=== PATIENT | male | born 1955 | race African-American/Black ===

== ENCOUNTER → 2017-07-10 | Outpatient (CLI) | payer BC ==
[~2017-07-10] MED LIST: BENICAR40 MG PO; CIALIS5 MG PO; COREG CR20 MG PO; EFFIENT10 MG PO; FLEXERIL PO; FLONASE16 GM INH; MAGOX 400400 MG PO; METROGEL55 GM TP; NAPROSYN500 MG PO; NITROGLYCERIN0.4 MG SUBLING; PLAVIX 75 MG TA75 M1 PO; POTASSIUM GLUCO99 M2 PO; SELENIMIN200 MCG PO; TURMERIC500 MG PO; VALIUM2 MG PO; VYTORIN 10-401 EACH PO; ZINC50 M1 PO; [UNRECOGNIZED DRUG - OTHER] PO
== END ==
LOC: RAD 08:39
DX: M54.2 Cervicalgia (principal)

== ENCOUNTER → 2017-11-10 | Outpatient (CLI) | payer BC | LOC: RAD 10:59 | DX: M16.0 Bilateral primary osteoarthritis of hip (principal) ==

== ENCOUNTER 2018-05-01 16:02 | Inpatient (IN) | payer BC ==
[~2018-05-01] VITALS: Ht 177.8 cm; Wt 154.2 kg
--- NOTE | ~2018-05-01 | HC ---
[facility] [place] [address] CONSULTATION Name: JIE CLARK Room #: 360-P [facility] IN ..#: [id number] Admission: 05/01/18 Attend Phys: Jass Wells MD Discharge: Date of : 59 Report #: [id number] THIS REPORT FOR: //name// CC: Jass Chau DATE OF SERVICE: 05/03/2018 INDICATION: Atrial fibrillation. HISTORY OF PRESENT ILLNESS: This is a 63-year-old gentleman with a history of CAD, paroxysmal AFib, obesity, hypertension, presenting with an episode of syncope. We are asked to evaluate the patient for AFib. His rhythm is sinus, but he is having short episodes of paroxysmal atrial fibrillation. He feels the palpitations. There is no history of chest pains, dyspnea, nausea or diarrhea. He has been having issues with his left neck and shoulder area, due to neuropathy. PAST MEDICAL HISTORY: CAD with DC with stent placement in 2007. Last cardiac catheterization in 07/2013 revealed patent RCA stents with to severe occlusions. History of hypertension, paroxysmal atrial fibrillation, morbid obesity, obstructive sleep apnea. ALLERGIES: ASPIRIN. MEDICATIONS: At home include Xarelto 20 mg daily, Neurontin, Protonix, Valium. SOCIAL HISTORY: Denies tobacco use. FAMILY HISTORY: Negative for premature CAD. REVIEW OF SYSTEMS: A full 10-point review of systems performed. Only the pertinent positives and negatives are described in the HPI. PHYSICAL EXAMINATION: VITAL SIGNS: Blood pressure is 150/80, heart rate is 61 beats per minute. GENERAL APPEARANCE: This is an obese male, in no acute distress. HEAD AND EYES: Normocephalic. Sclerae anicteric. ENT: Oral mucosa moist. NECK: Supple. LUNGS: Clear to auscultation. CARDIAC: Regular rate and rhythm; S1, S2 positive. ABDOMEN: Soft, nontender. EXTREMITIES: No cyanosis, 1-2+ lower extremity edema. LABORATORY VALUES: Creatinine is 1.2. Troponin is negative. Hemoglobin 13.4. [facility] [address] [place] [address] CONSULTATION Name: JIE CLARK Room #: 360-[facility] IN [facility].#: [id number] Admission: 05/01/18 Attend Phys: Jass Wells MD Discharge: Date of : 59 Report #: [id number] ASSESSMENT AND PLAN: 1. Paroxysmal atrial fibrillation, having very brief episodes. We will start a low dose beta nina at this time. He will continue with Xarelto. 2. Coronary artery disease with prior stent placement, stable with no symptoms of angina. 3. Syncope, may have not been a syncopal episode. As per Neuro. It may have been related to anxiolytics, sleep apnea, etc. 4. Hypertension, elevated blood pressure, would consider adding a diuretic in view of his lower extremity edema. 5. Sleep apnea, using a BiPAP machine. He has daytime somnolence, may need a reevaluation regarding the efficacy of his BiPAP machine. <ELECTRONICALLY SIGNED> By: Wisam Taamyo MD 05/04/18 0800 1143 1411 Wisam Tamayo MD /nt
--- NOTE | ~2018-05-01 | EKG ---
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: Marcia VALDIVIA : 1955 Requested By: Charlotte Atkinson Order Number: [id number] MD: Herson Warren Measurements Intervals [place] Rate: 62 P: 44 AR: 218 QRS: -9 QRSD: 88 T: 118 QT: 435 QTc: 442 Interpretive Statements Sinus rhythm Multiple premature complexes, supraven Borderline prolonged AR interval Abnormal R-wave progression, early transition Inferior infarct, old Compared to ECG 05/01/2018 18:44:51 No significant changes Electronically Signed On 05-06-2018 8:02:46 CDT by Herson Warren [email or web address] <ELECTRONICALLY SIGNED> By: Herson Warren MD, [facility] 05/06/18 0802 1319 1319 Herson Warren MD, [facility] /EPI
--- NOTE | ~2018-05-01 | EKG ---
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
--- NOTE | ~2018-05-01 | 2DMMODE ---
[facility] [address] [place] [address] 2 D/M-MODE ECHOCARDIOGRAM Name: JIE CLARK Room #: 360-P [facility] IN [facility]#: [id number] Admission: 05/01/18 Attend Phys: Jass Wells MD Discharge: Date of : 59 Date of Service: 05/04/18 1221 Report #: [id number] THIS REPORT FOR: //name// APPROVED REPORT Study performed: 05/04/2018 10:44:44 EXAM: Comprehensive 2D, Doppler, and color-flow Echocardiogram Patient Location: Bedside Room #: 360 Status: routine BSA: 2.62 HR: 57 bpm BP: 147/89 mmHg Other Information Study Quality: Technically Difficult/Technically Limited Technically limited study due to body habitus, inability to position patient, uncooperative patient. Indications Atrial Fibrillation Dizziness and Vertigo CAD Syncope Hypertension/HDD Echo Enhancing Agent Indication: Endocardial border delineation Agent(s) / Amount(s) Used: Optison 3 cc 2D Dimensions RVDd: 36.27 mm LVEF(%): 43.07 (>50%) IVSd: 13.22 (7-11mm) LVOT Diam: 24.86 (18-24mm) LVDd: 50.02 mm PWd: 11.80 (7-11mm) LVDs: 39.37 (25-40mm) Aortic Root: 35.83 mm IVC: 19.00 mm Broderick's LVEF: 43.07 % Volumes Left Atrial Volume (Systole) Single Plane 4CH: 66.84 mL Single Plane 2CH: 37.50 mL LA ESV Index: 24.00 mL/m2 [facility] [address] [address] 2 D/M-MODE ECHOCARDIOGRAM Name: JIE CLARK Arlene Room #: 360-[facility]#: [id number] Admission: 05/01/18 Attend Phys: Jass Wells MD Discharge: Date of : 59 Date of Service: 05/04/18 1221 Report #: [id number] Aortic Valve AoV Peak Chris.: 1.61 m/s AO Peak Gr.: 10.42 mmHg LVOT Max P.72 mmHg LVOT Max V: 1.30 m/s CAITLIN Vmax: 3.90 cm2 Mitral Valve E/A Ratio: 0.6 MV Decel. Time: 320.58 ms MV E Max Chris.: 0.63 m/s MV A Chris.: 1.01 m/s MV PHT: 92.97 ms IVRT: 114.19 ms Pulmonary Valve PV Peak Chris.: 1.06 m/s PV Peak Gr.: 4.47 mmHg Pulmonary Vein P Vein S: 0.44 m/s P Vein A: 0.29 m/s P Vein D: 0.31 m/s P Vein A Dur.: 107.3 msec P Vein S/D Ratio: 1.42 Tricuspid Valve RAP Estimate: 5.00 mmHg Left Ventricle The left ventricle is normal size. Regional wall motion is not well visualized but grossly normal. Mild concentric left ventricular hypertrophy. The left ventricular ejection fraction is within the normal range. LVEF is 50-55%. Mild diastolic dysfunction is present (impaired relaxation pattern). Right Ventricle Right ventricle is grossly normal in size. Right ventricular systolic function could not be assessed. Atria The left atrium size is normal. Right atrium is at the upper limits of normal. Aortic Valve The aortic valve is normal in structure. No aortic regurgitation is present. There is no aortic valvular stenosis. Mitral Valve The mitral valve is normal in structure. There is no mitral valve [address] [address] 2 D/M-MODE ECHOCARDIOGRAM Name: JIE CLARK Room #: 360-P [facility]#: [id number] Admission: 05/01/18 Attend Phys: Jass Wells MD Discharge: Date of : 59 Date of Service: 05/04/18 1221 Report #: [id number] regurgitation noted. No evidence of mitral valve stenosis. Tricuspid Valve Tricuspid valve is not well visualized. There is no tricuspid valve regurgitation noted. Unable to assess PA pressure. Pulmonic Valve Pulmonic valve is not well visualized. Great Vessels The aortic root is normal in size. IVC is normal in size and collapses >50% with inspiration. Pericardium There is no pericardial effusion. <Conclusion> The left ventricular ejection fraction is within the normal range. Regional wall motion is not well visualized but grossly normal. LVEF is 50-55%. Mild diastolic dysfunction The aortic valve is normal in structure. No aortic regurgitation or stenosis The mitral valve is normal in structure. No mitral valve regurgitation Pulmonary artery pressure could not be reliably ascertained There is no pericardial effusion. <ELECTRONICALLY SIGNED> By: Herson Warren MD, FACC 05/04/18 1221 1221 122 Herson Warren MD, FACC /INF
--- NOTE | ~2018-05-01 | EKG ---
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
--- NOTE | ~2018-05-01 | HC ---
[facility] [place] [address] [place] [address] CONSULTATION Name: EDUARDOJIE Arlene Room #: 360-P [facility]..#: [id number] Admission: 05/01/18 Attend Phys: Jass Wells MD Discharge: 05/06/18 Date of : 59 Report #: [id number] THIS REPORT FOR: //name// CC: Jass Chau REASON FOR CONSULTATION: AFib. HISTORY OF PRESENT ILLNESS: The patient is a 63-year-old with history of paroxysmal AFib as well as coronary artery disease, status post RCA stent, who recently has been having a lot of problems with back and hip pain. He was going to see his primary care physician and required some pain medications and some antianxiety medications. 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 He was at his doctor's office and had a possible syncopal episode while in the waiting room. He was admitted to the hospital and has not had any significant bradyarrhythmias. He has had some episodes of palpitations, which correlated with episodes of atrial fibrillation with rapid ventricular response. He has been experiencing some chest pain and chest pressure. He denies shortness of breath. He denies PND or orthopnea. REVIEW OF SYSTEMS: Negative other than what I mentioned above. PAST MEDICAL HISTORY: 1. Paroxysmal AFib. 2. CAD, status post stent. 3. Hypertension. 4. Obstructive sleep apnea. 5. Anxiety. 6. Depression. SOCIAL HISTORY: He does not smoke. FAMILY HISTORY: Noncontributory. ALLERGIES: Include ASPIRIN. CURRENT MEDICATIONS: Include hydralazine, Cymbalta, fentanyl, gabapentin, hydrochlorothiazide with triamterene, insulin, labetalol p.r.n., pantoprazole, Xarelto 20. PHYSICAL EXAMINATION: VITAL SIGNS: Temperature is 36.9, pulse 53-70, respiration 20, blood pressure 169/97, sats 95%. GENERAL: He is in no acute distress. HEENT: Oropharynx clear. NECK: Supple, no thyromegaly. [facility] [address] [place] [address] CONSULTATION Name: JIE CLARK Room #: 360-P [facility]#: [id number] Admission: 05/01/18 Attend Phys: Jass Wells MD Discharge: 05/06/18 Date of : 59 Report #: [id number] HEART: Regular rate and rhythm. LUNGS: Clear to auscultation bilaterally. ABDOMEN: Soft, nontender, nondistended with no hepatosplenomegaly. EXTREMITIES: No clubbing, cyanosis, edema. NEUROLOGIC: Cranial nerves 2-12 are intact. LABORATORY DATA: White count 4.5, hemoglobin 13, platelets 192. Coags: INR is 1.1. Chemistries: Sodium 144, potassium 3.5, BUN 13, creatinine 1.1, glucose 107, magnesium 2.1. ProBNP is 71. Troponin is negative x 3. His 12-lead EKG shows normal sinus rhythm with no ischemic changes and some inferior Q-waves. His echocardiogram shows EF of 50%-55%, mild LVH, normal left atrial size. ASSESSMENT: 1. Possible syncopal episode. 2. Paroxysmal atrial fibrillation. 3. Coronary artery disease. 4. Chest pain. PLAN: The patient is a 63-year-old with history of paroxysmal atrial fibrillation and chest pain. I have recommended for his chest pain that he undergo a nuclear stress test. With regards to his atrial fibrillation, I would like to start him on sotalol 80 b.i.d. and monitor for any EKG changes. We did discuss AFib ablation in the future to be performed as an outpatient. We will continue with Xarelto therapy. <ELECTRONICALLY SIGNED> By: Harjit Arriaza MD 05/07/18 1426 1721 0424 Harjit Arriaza MD /nt
[2018-05-01 17:07] VITALS: BP 155/92
[2018-05-01 17:16] LABS: ABSOLUTE NEUTROPHILS 2.8 thou/uL (1.4-8.2); BASOPHILS 0.7 % (0.0-2.0); EOSINOPHILS 3.6 % (0.0-3.0); HEMOGLOBIN 14.6 gm/dL (14.0-18.0); LYMPHOCYTES 28.4 % (24.0-44.0); MCH 29.9 pg (26.0-34.0); MCHC 33.9 g/dL (28.0-37.0); MONOCYTES 9.4 % (1.0-8.0); PLATELET COUNT 217 thou/uL (150-400); POLYS 57.9 % (36.0-66.0); RBC 4.88 mil/uL (4.50-6.00); RDW 13.5 % (10.5-14.5); WBC 4.9 thou/uL (4.0-11.0)
[2018-05-01 17:27] LABS: ANION GAP 5 mmol/L (7-16); BUN 14 mg/dL (7-18); CALCIUM 9.2 mg/dL (8.5-10.1); CHLORIDE 106 mmol/L (98-107); CO2 29 mmol/L (21-32); CREATININE 1.2 mg/dL (0.7-1.3); GLUCOSE 74 mg/dL (74-106); SODIUM 140 mmol/L (136-145)
[2018-05-01 17:36] LABS: ALBUMIN 3.5 g/dL (3.4-5.0); MAGNESIUM 2.2 mg/dL (1.8-2.4); POTASSIUM 4.4 mmol/L (3.5-5.1); SGOT 30 U/L (15-37); SGPT 28 U/L (30-65); TOTAL BILIRUBIN 0.5 mg/dL (<0.1-1.0); TOTAL PROTEIN 7.7 g/dL (6.4-8.2); TROPONIN-I < 0.04 ng/mL (<0.06)
[2018-05-01 17:58] LABS: APTT 31.8 Seconds (24.5-32.8); INR 1.1
[2018-05-01 18:40] LABS: URINE BILIRUBIN NEGATIVE (Negative); URINE BLOOD NEGATIVE (Negative); URINE CLARITY CLEAR; URINE COLOR YELLOW; URINE GLUCOSE-RANDOM* NEGATIVE (Negative); URINE KETONES NEGATIVE (Negative); URINE NITRITE-REFLEX NEGATIVE (Negative); URINE PROTEIN (DIPSTICK) NEGATIVE (Negative)
[2018-05-01 18:47] LABS: URINE LEUKOCYTES-REFLEX 1+ (Negative)
[2018-05-01] MEDS ORDERED: NEURONTIN300 MG PO (18:48)
[2018-05-01] MEDS ORDERED: GABAPENTIN 100100 MG PO (18:48)
[2018-05-01] MEDS ORDERED: XARELTO20 MG PO (18:48)
[2018-05-01 18:49] LABS: AMP/METHAMP Negative (Negative); BARBITURATES Negative (Negative); BENZODIAZEPINES POSITIVE (Negative); COCAINE Negative (Negative); METHADONE Negative (Negative); OPIATES POSITIVE (Negative); PCP Negative (Negative)
[2018-05-01] MEDS ORDERED: VALIUM5 MG PO (18:50)
[2018-05-01] MEDS ORDERED: CYMBALTA20 MG PO (18:50)
[2018-05-01 18:53] LABS: BACTERIA-REFLEX None Seen /HPF (None Seen); CASTS None Seen /LPF (None Seen); CRYSTALS None Seen /LPF (None Seen); SQUAMOUS 0-3 Few /LPF (0-3); URINE RBC None Seen /HPF (0-2); URINE WBC-REFLEX 6-15 Few /HPF (0-5)
[2018-05-01 19:38] VITALS: BP 151/106
[2018-05-01 20:20] VITALS: BP 144/80
[2018-05-01 21:00] VITALS: BP 160/113
[2018-05-02] VITALS (12 sets, daily range): BP systolic 137–157; BP diastolic 80–110
[2018-05-02 01:51] LABS: EOSINOPHILS 4.4 % (0.0-3.0); HEMATOCRIT 40.2 % (42.0-52.0); HEMOGLOBIN 13.4 gm/dL (14.0-18.0); LYMPHOCYTES 41.2 % (24.0-44.0); MCH 29.4 pg (26.0-34.0); MCHC 33.4 g/dL (28.0-37.0); MCV 88.2 fL (80.0-100.0); MONOCYTES 9.1 % (1.0-8.0); PLATELET COUNT 192 thou/uL (150-400); POLYS 44.3 % (36.0-66.0); RBC 4.56 mil/uL (4.50-6.00); RDW 13.9 % (10.5-14.5); WBC 4.5 thou/uL (4.0-11.0)
[2018-05-02 02:06] LABS: CHOLESTEROL 188 mg/dL (<200); HDL CHOLESTEROL 39 mg/dL (>40); LDL CHOLESTEROL 125 mg/dL (<100); SERUM ASSESSMENT Clear; TC:HDL 4.8 Ratio (Not establshd); TRIGLYCERIDE 123 mg/dL (<150); VLDL 25 mg/dL (<40)
[2018-05-02 02:40] LABS: CALCIUM 8.6 mg/dL (8.5-10.1); CREATININE 1.1 mg/dL (0.7-1.3); MAGNESIUM 2.1 mg/dL (1.8-2.4); POTASSIUM 3.5 mmol/L (3.5-5.1)
[2018-05-03] VITALS (12 sets, daily range): BP systolic 128–179; BP diastolic 80–113
[2018-05-04 04:30] VITALS: BP 147/89
[2018-05-04 08:00] VITALS: BP 147/89; BP 158/108
[2018-05-04 12:00] VITALS: BP 145/97; BP 169/97; BP 171/100
[2018-05-04 16:00] VITALS: BP 177/109
[2018-05-04 19:25] VITALS: BP 155/90
[2018-05-05 04:20] VITALS: BP 118/75
[2018-05-05 06:26] LABS: ABSOLUTE NEUTROPHILS 1.7 thou/uL (1.4-8.2); BASOPHILS 0.8 % (0.0-2.0); EOSINOPHILS 5.9 % (0.0-3.0); HEMATOCRIT 43.3 % (42.0-52.0); HEMOGLOBIN 14.6 gm/dL (14.0-18.0); LYMPHOCYTES 38.6 % (24.0-44.0); MCH 29.9 pg (26.0-34.0); MCHC 33.7 g/dL (28.0-37.0); MCV 88.7 fL (80.0-100.0); MONOCYTES 10.4 % (1.0-8.0); PLATELET COUNT 201 thou/uL (150-400); POLYS 44.3 % (36.0-66.0); RBC 4.89 mil/uL (4.50-6.00); RDW 13.5 % (10.5-14.5); WBC 3.8 thou/uL (4.0-11.0)
[2018-05-05 06:31] LABS: CALCIUM 9.3 mg/dL (8.5-10.1); CREATININE 1.1 mg/dL (0.7-1.3); POTASSIUM 3.3 mmol/L (3.5-5.1)
[2018-05-05 07:31] VITALS: BP 146/94
[2018-05-05 12:26] VITALS: BP 160/98
[2018-05-05 17:54] VITALS: BP 132/91
[2018-05-05 19:15] VITALS: BP 117/77
[2018-05-06 04:15] VITALS: BP 117/81
[2018-05-06 05:39] LABS: HEMATOCRIT 43.1 % (42.0-52.0); HEMOGLOBIN 14.5 gm/dL (14.0-18.0); MCH 29.6 pg (26.0-34.0); MCHC 33.6 g/dL (28.0-37.0); MCV 88.2 fL (80.0-100.0); PLATELET COUNT 216 thou/uL (150-400); RBC 4.89 mil/uL (4.50-6.00); RDW 13.8 % (10.5-14.5); WBC 3.8 thou/uL (4.0-11.0)
[2018-05-06 05:52] LABS: PROTIME 10.5 Seconds (9.3-11.4)
[2018-05-06 06:02] LABS: ALBUMIN 3.3 g/dL (3.4-5.0); CALCIUM 9.1 mg/dL (8.5-10.1); CREATININE 1.2 mg/dL (0.7-1.3); MAGNESIUM 2.3 mg/dL (1.8-2.4); POTASSIUM 3.6 mmol/L (3.5-5.1); TOTAL BILIRUBIN 0.7 mg/dL (<0.1-1.0); TOTAL PROTEIN 7.1 g/dL (6.4-8.2)
[2018-05-06 08:00] VITALS: BP 137/96
[2018-05-06 08:14] LABS: ABSOLUTE NEUTROPHILS 1.4 thou/uL (1.4-8.2); PLATELET ESTIMATE NORMAL
[2018-05-06 12:00] VITALS: BP 129/75
[2018-05-06 16:00] VITALS: BP 129/90
[2018-05-06] MEDS ORDERED: XARELTO20 MG PO (17:27)
[2018-05-06] MEDS ORDERED: PANTOPRAZOLE SO40 M1 PO (17:27)
[2018-05-06] MEDS ORDERED: ACETAMINOPHEN325 M1 PO (17:27)
[2018-05-06] MEDS ORDERED: SORINE 80 MG TA80 M1 PO (17:27)
[2018-05-06] MEDS ORDERED: MAXZIDE-25 MG1 EACH PO (17:27)
[2018-05-06 17:40] VITALS: BP 129/90
[2018-05-07 04:07] LABS: CK TOTAL 232 U/L (24-204)
[2018-05-08 15:07] LABS: CK MACRO TYPE I 0 % (Not Observed); CK MACRO TYPE II 0 % (Not Observed); CPK BB (%) 0 % (0); CPK MB (%) 0 % (0-3); CPK MM (%) 100 % (97-100)
== END 2018-05-06 19:11 | disposition home or self-care (01) | DRG 309 ==
LOC: ER 16:02 → EROBS 18:31 → 3W 18:31
PROVIDERS: Emergency Medicine; Hospitalist; Nurse Practitioner
PROC: 5A09457 Assistance with Respiratory Ventilation, 24-96 Consecutive Hours, Continuous Positive Airway Pressure (ICD-10-PCS; principal; 2018-05-02)
DX: I48.0 Paroxysmal atrial fibrillation (principal); Z68.42 Body mass index [BMI] 45.0-49.9, adult; M62.82 Rhabdomyolysis; Z79.01 Long term (current) use of anticoagulants; I16.0 Hypertensive urgency; F32.9 Major depressive disorder, single episode, unspecified; G47.33 Obstructive sleep apnea (adult) (pediatric); M19.90 Unspecified osteoarthritis, unspecified site; I10 Essential (primary) hypertension; I25.10 Atherosclerotic heart disease of native coronary artery without angina pectoris; E66.01 Morbid (severe) obesity due to excess calories; F41.9 Anxiety disorder, unspecified; Z88.8 Allergy status to other drugs, medicaments and biological substances; Z95.5 Presence of coronary angioplasty implant and graft; Z86.73 Personal history of transient ischemic attack (TIA), and cerebral infarction without residual deficits
CPT/HCPCS: 10879

== ENCOUNTER 2018-05-13 14:05 | Emergency (ER) | payer BC ==
[~2018-05-13] VITALS: Ht 177.8 cm; Wt 149.2 kg
--- NOTE | ~2018-05-13 | EKG ---
[place] [address] [facility] [place] [address] ELECTROCARDIOGRAM REPORT Name: JIE CLARK Room #: [facility]#: [id number] Admission: 05/13/18 Attend Phys: Discharge: Date of : 59 Report #: [id number] THIS REPORT FOR: //name// [facility] ED Test Date: 2018-05-13 Test Time: 14:12:12 Pat Name: JIE CLARK Department: Room: Gender: M Hourly Shift: CWEIANTOINE : 1955 Requested By: Nettie Linares Order Number: [id number] MD: Herson Warren Measurements Intervals [place] Rate: 62 P: 7 CO: 192 QRS: -23 QRSD: 95 T: 32 QT: 408 QTc: 415 Interpretive Statements Sinus rhythm Abnormal R-wave progression, early transition Inferior infarct, old Compared to ECG 05/05/2018 13:19:09 Atrial premature complexes are no longer present Electronically Signed On 05-13-2018 15:45:11 CDT by Herson Warren [email or web address] <ELECTRONICALLY SIGNED> By: Herson Warren MD, [facility] 05/13/18 1545 1412 141 Herson Warren MD, [facility] /EPI
[~2018-05-13 14:05] MED LIST changes: +ACETAMINOPHEN325 M1 PO; +CYMBALTA20 MG PO; +GABAPENTIN 100100 MG PO; +MAXZIDE-25 MG1 EACH PO; +NEURONTIN300 MG PO; +PANTOPRAZOLE SO40 M1 PO; +SORINE 80 MG TA80 M1 PO; +VALIUM5 MG PO; +XARELTO20 MG PO
[2018-05-13 15:34] LABS: ABSOLUTE NEUTROPHILS 1.6 thou/uL (1.4-8.2); BASOPHILS 0.9 % (0.0-2.0); EOSINOPHILS 5.9 % (0.0-3.0); HEMATOCRIT 41.4 % (42.0-52.0); HEMOGLOBIN 14.3 gm/dL (14.0-18.0); LYMPHOCYTES 38.5 % (24.0-44.0); MCHC 34.4 g/dL (28.0-37.0); MCV 87.1 fL (80.0-100.0); MONOCYTES 11.2 % (1.0-8.0); PLATELET COUNT 203 thou/uL (150-400); POLYS 43.5 % (36.0-66.0); RBC 4.76 mil/uL (4.50-6.00); RDW 13.1 % (10.5-14.5); WBC 3.7 thou/uL (4.0-11.0)
[2018-05-13 15:42] LABS: ANION GAP 5 mmol/L (7-16); BUN 14 mg/dL (7-18); CALCIUM 9.1 mg/dL (8.5-10.1); CHLORIDE 104 mmol/L (98-107); CO2 28 mmol/L (21-32); CREATININE 1.2 mg/dL (0.7-1.3); GLUCOSE 112 mg/dL (74-106); POTASSIUM 3.6 mmol/L (3.5-5.1); SODIUM 137 mmol/L (136-145)
[2018-05-13 15:51] LABS: TROPONIN-I < 0.04 ng/mL (<0.06)
== END 2018-05-13 18:54 | disposition home or self-care (01) ==
LOC: ER 14:05
PROVIDERS: Emergency Medicine
DX: R07.9 Chest pain, unspecified (principal); R42 Dizziness and giddiness; R11.0 Nausea; R06.02 Shortness of breath; R20.2 Paresthesia of skin; I10 Essential (primary) hypertension; I48.91 Unspecified atrial fibrillation; F41.9 Anxiety disorder, unspecified; F32.9 Major depressive disorder, single episode, unspecified; M19.90 Unspecified osteoarthritis, unspecified site; Z95.5 Presence of coronary angioplasty implant and graft; Z88.6 Allergy status to analgesic agent; Z88.8 Allergy status to other drugs, medicaments and biological substances

== ENCOUNTER → 2018-05-26 | Outpatient (CLI) | payer BC ==
--- NOTE | ~2018-05-26 | P ---
[facility] [place] [address] PROCEDURE REPORT Name: JIE CLARK [id number] Admission: 05/26/18 Attend Phys: Harjit Arriaza MD Discharge: Date of : 59 Report #: [id number] THIS REPORT FOR: //name// CC: Fer Chau PROCEDURE: Implantable loop recorder insertion. PREOPERATIVE DIAGNOSIS: Palpitations. POSTOPERATIVE DIAGNOSIS: Palpitations. HISTORY: The patient is a patient with a history of atrial fibrillation and palpitations, here for implantable loop recorder insertion. DESCRIPTION OF PROCEDURE: The patient underwent informed consent. The patient was prepped in a sterile fashion. I injected lidocaine at the incision site. An incision was made. The device was injected under the skin and a single layer of suture was performed. A dressing was placed. The patient awoke neurologically and hemodynamically intact, with no complications and no significant bleeding. The implanted device was a [employer] Confirm model #3500, serial #[id number]. The device was programmed to its nominal settings. By: 1255 1327 Harjit Arriaza MD /nt
[2018-05-26 09:41] VITALS: BP 120/81
== END | disposition home or self-care (01) ==
LOC: CATH 06:41
DX: I48.91 Unspecified atrial fibrillation (principal); R00.2 Palpitations; I10 Essential (primary) hypertension; G47.33 Obstructive sleep apnea (adult) (pediatric); E66.01 Morbid (severe) obesity due to excess calories; Z86.73 Personal history of transient ischemic attack (TIA), and cerebral infarction without residual deficits; Z88.8 Allergy status to other drugs, medicaments and biological substances; Z79.899 Other long term (current) drug therapy

== ENCOUNTER → 2018-09-04 | Outpatient (CLI) | payer BC ==
[2018-09-04 08:38] LABS: HEMATOCRIT 43.4 % (42.0-52.0); HEMOGLOBIN 14.8 gm/dL (14.0-18.0); MCH 30.2 pg (26.0-34.0); MCV 88.8 fL (80.0-100.0); RBC 4.88 mil/uL (4.50-6.00); RDW 13.3 % (10.5-14.5); WBC 4.5 thou/uL (4.0-11.0)
[2018-09-04 09:02] LABS: ALBUMIN 3.5 g/dL (3.4-5.0); CALCIUM 9.1 mg/dL (8.5-10.1); CREATININE 1.1 mg/dL (0.7-1.3); POTASSIUM 3.4 mmol/L (3.5-5.1); TOTAL BILIRUBIN 0.5 mg/dL (<0.1-1.0); TOTAL PROTEIN 7.9 g/dL (6.4-8.2)
== END ==
LOC: CAT 07:58
PROVIDERS: Internal Medicine Cardiovascular Disease
DX: I48.91 Unspecified atrial fibrillation (principal); I25.10 Atherosclerotic heart disease of native coronary artery without angina pectoris

== ENCOUNTER 2018-09-10 06:36 | Observation (INO) | payer BC ==
[~2018-09-10] VITALS: Ht 177.8 cm; Wt 153.0 kg
--- NOTE | ~2018-09-10 | P ---
[facility] [place] [address] PROCEDURE REPORT Name: JIE CLARK Room #: 219-P [facility] Omar Belcher#: [id number] Admission: 09/10/18 Attend Phys: Harjit Arriaza MD Discharge: 09/11/18 Date of : 59 Report #: [id number] THIS REPORT FOR: //name// CC: Christopher Chau DATE OF SERVICE: 09/10/2018 PREOPERATIVE DIAGNOSIS: Paroxysmal atrial fibrillation. POSTOPERATIVE DIAGNOSIS: Paroxysmal atrial fibrillation. HISTORY: The patient is a 63-year-old male with a history of coronary artery disease and paroxysmal atrial fibrillation, status post [employer] [place] implantable loop recorder insertion who has continued to have atrial fibrillation despite sotalol therapy. He is here for atrial fibrillation ablation. PROCEDURES PERFORMED: 1. AFib ablation, CPT code 19471. 2. 3D mapping EP, CPT code 78179. 3. Intracardiac echocardiography, CPT code 09485. ANESTHESIA: The patient underwent general anesthesia with no anesthesia related complications. DESCRIPTION OF PROCEDURE: The patient underwent informed consent. We discussed the details of the procedure including the risks, which include but not limited to bleeding, vascular damage, stroke or NC. He understood these risks and is willing to proceed. The patient was brought to the EP laboratory in fasting and unsedated state, prepped and draped in a sterile fashion and was placed under general anesthesia. I then obtained access to the right femoral vein x 3, placing an 8, 9 and 7-Estonian short sheath using the modified Seldinger technique. Next, under fluoroscopy I placed a decapolar catheter easily in the coronary sinus and an Ice catheter into the right atrium. Using CartoSound, I created a detailed 3D geometry of the right atrium and merged this with the cardiac CT scan. Next, the patient was systemically heparinized and a transseptal was performed using an SL1 sheath and a Jackson needle. This was straightforward without any issues. I then placed a Lasso catheter into the left atrium and created a 3D geometry of the left atrium and again merged this with the ultrasound and CT findings. At baseline, the patient was in sinus rhythm with a sinus cycle length of 780 milliseconds, MN interval 195 milliseconds, QRS duration 90 milliseconds, QT interval 400 milliseconds. Next, I exchanged the SL1 sheath for the cryo [address] [address] PROCEDURE REPORT Name: JIE CLARK Room #: 219-P [facility] Omar Belcher#: [id number] Admission: 09/10/18 Attend Phys: Harjit Arriaza MD Discharge: 09/11/18 Date of : 59 Report #: [id number]. The cryoballoon was placed into the left atrium. Next, I started by isolating the left superior pulmonary vein. I performed a 4-minute freeze in this vein and the vein isolated within 41 seconds. Therefore, I performed a single freeze of this vein. The left inferior pulmonary vein underwent a 4-minute freeze followed by a 3-minute freeze and after performing these two freezes there was evidence of isolation at the vein as well. I then turned my attention to the right superior pulmonary vein. This vein underwent a 3-minute freeze as this vein isolated within 50 seconds. I then turned my attention to the right inferior pulmonary vein and this underwent a 4-minute freeze followed by a 3-minute freeze and the vein was noted to be isolated. I then re-interrogated all veins and the left inferior pulmonary vein was reconnected. I performed a 4-minute freeze followed by a 3-minute freeze and the vein was isolated at this point. While performing the freezes on the right veins, I performed phrenic nerve pacing from the decapolar catheter placed at the subclavian vessel. All veins were re-interrogated. There was found to be entrance and exit block. As such, the procedure was concluded. The patient was in sinus rhythm with a sinus cycle length of 933 milliseconds, MN interval 190 milliseconds, QRS duration 92 milliseconds, QT interval 425 milliseconds. The patient then received systemic protamine and once the ACT was within acceptable range, all catheters and sheaths were pulled. I did perform a fbqtxa-[id number]-axhtd suture at the groin given his morbid obesity and higher risk for bleeding. CONCLUSIONS: Successful AFib ablation with isolation of the four pulmonary veins. By: 1258 2108 Harjit Arriaza MD /nt
--- NOTE | ~2018-09-10 | D ---
[facility] [place] [address] DISCHARGE SUMMARY Name: JIE CLARK Room #: 219-P [facility] Omar Belcher#: [id number] Admission: 09/10/18 Attend Phys: Harjit Arriaza MD Discharge: 09/11/18 Date of : 59 Report #: [id number] THIS REPORT FOR: //name// CC: Christopher Chau DATE OF SERVICE: 09/11/2018 DISCHARGE DIAGNOSES: 1. Paroxysmal atrial fibrillation. 2. Coronary artery disease. PROCEDURES PERFORMED: AFib ablation. HISTORY OF PRESENT ILLNESS: The patient is a 63-year-old with a history of recurrent atrial fibrillation despite antiarrhythmic drugs. He is here for an ablation. He underwent successful isolation of the 4 pulmonary veins without complication. HOSPITAL COURSE: He was monitored in the CCU overnight. On the day of discharge, he had some mild inspiratory chest pain. EKG demonstrated normal sinus rhythm with no ischemic changes. Otherwise, he was doing great. PHYSICAL EXAMINATION: HEART: On exam, his heart was regular rate and rhythm. LUNGS: Clear to auscultation bilaterally. ABDOMEN: Soft, nontender, nondistended. His right groin showed no significant bruising or hematoma. Telemetry, he maintained sinus rhythm throughout the night. As such, he was deemed stable for discharge home. He will continue with his Xarelto and sotalol therapy. He will continue his other home medications as well. Discharge instructions were reviewed and he will follow up with me in a period of 3 months. <ELECTRONICALLY SIGNED> By: Harjit Arriaza MD 09/14/18 1446 0826 1603 Harjit Arriaza MD /nt
--- NOTE | ~2018-09-10 | EKG ---
[address] [address] ELECTROCARDIOGRAM REPORT Name: JIE CLARK Room #: 219-[facility] M.R.#: [id number] Admission: 09/10/18 Attend Phys: Harjit Arriaza MD Discharge: Date of : 59 Report #: [id number] THIS REPORT FOR: //name// [facility] Test Date: 2018-09-10 Test Time: 15:44:22 Pat Name: JIE CLARK Department: Room: 219 Gender: M Insurance Follow Up Rep: Marcia VALDIVIA : 1955 Requested By: Harjit Arriaza Order Number: [id number] MD: Herson Warren Measurements Intervals [place] Rate: 74 P: 40 IN: 204 QRS: -16 QRSD: 99 T: 59 QT: 398 QTc: 442 Interpretive Statements Sinus rhythm Abnormal R-wave progression, early transition Inferior infarct, old Compared to ECG 05/13/2018 14:12:12 No significant changes Electronically Signed On 09-11-2018 8:28:20 CDT by Herson Warren [email or web address] <ELECTRONICALLY SIGNED> By: Herson Warren MD, [facility] 09/11/18 0828 1544 1544 Herson Warren MD, [facility] /EPI
[2018-09-10 07:04] VITALS: BP 139/88
[2018-09-10 07:07] LABS: EOSINOPHILS 5.9 % (0.0-3.0); HEMATOCRIT 41.6 % (42.0-52.0); HEMOGLOBIN 14.2 gm/dL (14.0-18.0); LYMPHOCYTES 33.5 % (24.0-44.0); MCH 30.3 pg (26.0-34.0); MCHC 34.1 g/dL (28.0-37.0); MCV 88.9 fL (80.0-100.0); MONOCYTES 11.2 % (1.0-8.0); PLATELET COUNT 204 thou/uL (150-400); POLYS 48.4 % (36.0-66.0); RBC 4.68 mil/uL (4.50-6.00); RDW 13.4 % (10.5-14.5)
[2018-09-10 07:16] LABS: CALCIUM 9.2 mg/dL (8.5-10.1); CREATININE 1.3 mg/dL (0.7-1.3); POTASSIUM 3.1 mmol/L (3.5-5.1)
[2018-09-10] MEDS ORDERED: NORCO 5-325 TA1 EACH PO (07:18)
[2018-09-10] MEDS ORDERED: EDARBYCLOR 40-1 EAC1 PO (07:19)
[2018-09-10 07:22] LABS: ALBUMIN 3.5 g/dL (3.4-5.0); TOTAL BILIRUBIN 0.4 mg/dL (<0.1-1.0); TOTAL PROTEIN 7.8 g/dL (6.4-8.2)
[2018-09-10 07:25] LABS: APTT 27.5 Seconds (24.5-32.8); PROTIME 10.2 Seconds (9.3-11.4)
[2018-09-10 13:15] VITALS: BP 153/69
[2018-09-10 17:30] VITALS: BP 149/72
[2018-09-10 19:41] VITALS: BP 146/82
[2018-09-11 00:24] VITALS: BP 130/64
[2018-09-11 04:35] VITALS: BP 118/64
[2018-09-11 07:31] VITALS: BP 144/67
[2018-09-11] MEDS ORDERED: SORINE 80 MG TA80 M1 PO (08:15)
[2018-09-11 09:47] VITALS: BP 144/67
== END 2018-09-11 12:20 | disposition home or self-care (01) ==
LOC: CATH 06:36 → 2N 15:37 → ENTRNSPT 09-11 12:16 → EDTRNSPTSTS 09-11 12:19 → 2N 09-11 12:20
PROVIDERS: Internal Medicine Cardiovascular Disease
DX: I48.0 Paroxysmal atrial fibrillation (principal); I25.10 Atherosclerotic heart disease of native coronary artery without angina pectoris; E78.00 Pure hypercholesterolemia, unspecified; I10 Essential (primary) hypertension; M19.90 Unspecified osteoarthritis, unspecified site; H53.2 Diplopia; G47.30 Sleep apnea, unspecified; E66.01 Morbid (severe) obesity due to excess calories; Z68.42 Body mass index [BMI] 45.0-49.9, adult; Z95.5 Presence of coronary angioplasty implant and graft; Z98.890 Other specified postprocedural states; Z87.891 Personal history of nicotine dependence; Z72.89 Other problems related to lifestyle; Z79.899 Other long term (current) drug therapy; Z86.73 Personal history of transient ischemic attack (TIA), and cerebral infarction without residual deficits; Z88.6 Allergy status to analgesic agent
CPT/HCPCS: 62110; 62900; 70005

== ENCOUNTER → 2018-10-04 | Outpatient (CLI) | payer BC ==
[~2018-10-04] MED LIST changes: +EDARBYCLOR 40-1 EAC1 PO; +NORCO 5-325 TA1 EACH PO
--- NOTE | ~2018-10-04 | SLE ---
[facility] [address] [address] POLYSOMNOGRAPHY STUDY Name: JIE CLARK Room #: REG [employer]#: [id number] Admission: 10/04/18 Attend Phys: Enrique Zayas MD Discharge: Date of : 59 Report #: [id number] THIS REPORT FOR: //name// CC: Enrique Chau DATE OF SERVICE: 10/04/2018 ATTENDING PHYSICIAN: Dr. Ector Rabago. The patient is 63 years old who weighs 328 pounds with a BMI of 47.1. The patient's Campbell score is 18/24 suggesting severe subjective hypersomnia. The patient has a history of sleep apnea for which he is on BiPAP at 20/14. However, he continues to have a persistent severe hypersomnia. His recent download information shows that BiPAP is effective in treating the patient's sleep apnea and his AHI was only 2.1 per hour from data downloaded between 09/17/2018-09/30/2018. Study with BiPAP followed by MSLT was performed to determine the etiology of his persistent hypersomnia. The patient is also on Cymbalta, gabapentin, and hydrocodone on a chronic basis and these medications were stopped 2 weeks prior to the testing. During the night of study, the patient spent 468 minutes in bed and slept for 395 minutes with a sleep efficiency of 84%. Sleep latency was 14.2 minutes with a REM latency of 83.2 minutes. Overall, sleep architecture showed increased stage 1 sleep, slightly reduced stage 2 sleep which was 35% of total sleep time. Absent N3 sleep and increased REM sleep, which was 34% of the total sleep time. EKG monitoring revealed average heart rate of 63 beats per minute. PVCs were occasionally seen. PLMS were seen at an index of 6.5 per hour and only 1.7 per hour caused EEG arousals. The patient was started on BiPAP at his home pressure of 20/14 and continued on the same pressure. The patient's AHI was only 1.2 per hour from 395 minutes of sleep at this pressure. Oxygen saturation remained above 93%. The patient had supine as well as REM sleep. This home BiPAP pressure was effective in treating the patient's sleep apnea. IMPRESSION: 1. Sleep apnea diagnosed by previous sleep study. 2. No clinically significant PLMS. RECOMMENDATIONS: 1. BiPAP at the prescribed home pressure of 20/14 was effective in treating the [facility] [address] [address] POLYSOMNOGRAPHY STUDY Name: JIE CLARK [id number] Admission: 10/04/18 Attend Phys: Enrique Zayas MD Discharge: Date of : 59 Report #: [id number] patient's sleep apnea. The patient's AHI was only 1.2 per hour at this pressure. 2. To evaluate patients persistent hypersomnia, MSLT was performed the next day, which is reported separately. 3. 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 4. Cautioned regarding driving until the patient's hypersomnia is resolved. <ELECTRONICALLY SIGNED> By: Enrique Zayas MD 10/05/18 2249 1810 1833 Enrique Zayas MD /nt
--- NOTE | ~2018-10-04 | SLE ---
[facility] [place] [address] POLYSOMNOGRAPHY STUDY Name: JIE CLARK Room #: REG [facility]#: [id number] Admission: 10/04/18 Attend Phys: Enrique Zayas MD Discharge: Date of : 59 Report #: [id number] THIS REPORT FOR: //name// CC: Enrique Chau DATE OF SERVICE: 10/05/2018 TEST : MSLT ATTENDING PHYSICIAN: Dr. Ector Rabago. The patient underwent multiple sleep latency tests after sleeping the night before on his therapeutic BiPAP pressure. The patient continues to have hypersomnia despite effective use of BiPAP. His sleep efficiency the night before was 84%. The patient's recent download data while on BiPAP shows that his BiPAP was effective in treating the patient's sleep apnea and AHI was only 2.1 per hour. The patient's AHI on the night of BiPAP study was also only 1.2 per hour suggesting current BiPAP pressure to be effective in controlling the patient's sleep apnea. The patient also held his chronic hydrocodone as well as Cymbalta two weeks before the study and gabapentin was also withheld 1 week before the study. Standard multiple sleep latency protocol was used. During the first nap session, the patient's sleep latency was 12 minutes and 30 seconds. There was no REM sleep observed. During the second nap, the patient's sleep latency was 5 minutes and 30 seconds and no REM sleep was observed. During the third nap, the patient's sleep latency was 4 minutes and 30 seconds and REM sleep was observed. During the fourth nap, the patient's sleep latency was 7 minutes and no REM sleep seen. During the fifth nap, the patient's sleep latency was 3 minutes and 18 seconds and no REM sleep was observed. The patient's mean sleep latency for all five naps was 6 minutes and 33 seconds and only one REM sleep was observed.Patient used BIPAP on all naps. IMPRESSION: Highly abnormal multiple sleep latency test consistent with pathological hypersomnia. The patient does not meet the criteria for narcolepsy. The findings favor idiopathic hypersomnia. RECOMMENDATIONS: 1. The patient would benefit from a trial of stimulant therapy. It should be noted that there is a subset of patients with sleep apnea, who despite effective use of positive pressure therapy remains sleepy and initiation of stimulant medication would be indicated in those cases.MSLT shows persistent hypersomnia despite off all sedatives and narcotic medications. 2. The patient should be followed up clinically in 4-6 weeks after initiation of stimulant medication. 3. Minimize the use of sedatives and narcotics. [facility] [address] [place] [address] POLYSOMNOGRAPHY STUDY Name: JIE CLARK KOKI [facility] [id number] Admission: 10/04/18 Attend Phys: Enrique Zayas MD Discharge: Date of : 59 Report #: [id number] 4. Cautioned regarding driving until the patient's hypersomnia is resolved with the above recommendations. <ELECTRONICALLY SIGNED> By: Enrique Zayas MD 10/05/18 2249 1816 1853 Enrique Zayas MD /nt
[2018-10-05 15:38] LABS: AMP/METHAMP Negative (Negative); BARBITURATES Negative (Negative); BENZODIAZEPINES Negative (Negative); COCAINE Negative (Negative); METHADONE Negative (Negative); OPIATES Negative (Negative); PCP Negative (Negative)
== END ==
LOC: SLEEPLAB 16:01
PROVIDERS: Internal Medicine Critical Care Medicine
DX: G47.30 Sleep apnea, unspecified (principal); G47.11 Idiopathic hypersomnia with long sleep time

== ENCOUNTER 2018-10-20 10:10 | Emergency (ER) | payer BC ==
[~2018-10-20] VITALS: Ht 177.8 cm; Wt 149.2 kg
--- NOTE | ~2018-10-20 | EKG ---
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
[2018-10-20 11:13] LABS: ABSOLUTE NEUTROPHILS 2.4 thou/uL (1.4-8.2); BASOPHILS 1.1 % (0.0-2.0); EOSINOPHILS 5.1 % (0.0-3.0); HEMOGLOBIN 13.6 gm/dL (14.0-18.0); LYMPHOCYTES 28.6 % (24.0-44.0); MCV 88.4 fL (80.0-100.0); MONOCYTES 9.8 % (1.0-8.0); PLATELET COUNT 245 thou/uL (150-400); POLYS 55.4 % (36.0-66.0); RBC 4.52 mil/uL (4.50-6.00); RDW 13.7 % (10.5-14.5); WBC 4.3 thou/uL (4.0-11.0)
[2018-10-20 11:25] LABS: ANION GAP 5 mmol/L (7-16); BUN 14 mg/dL (7-18); CALCIUM 9.4 mg/dL (8.5-10.1); CHLORIDE 107 mmol/L (98-107); CO2 28 mmol/L (21-32); CREATININE 1.1 mg/dL (0.7-1.3); GLUCOSE 97 mg/dL (74-106); POTASSIUM 3.7 mmol/L (3.5-5.1); SODIUM 140 mmol/L (136-145)
[2018-10-20 11:31] LABS: ALBUMIN 3.4 g/dL (3.4-5.0); DIRECT BILIRUBIN < 0.1 mg/dL (<0.1-0.3); LIPASE 127 U/L (73-393); SGOT 10 U/L (15-37); SGPT 20 U/L (30-65); TOTAL BILIRUBIN 0.3 mg/dL (<0.1-1.0); TOTAL PROTEIN 7.6 g/dL (6.4-8.2)
[2018-10-20 12:40] VITALS: BP 150/90
== END 2018-10-20 12:41 | disposition home or self-care (01) ==
LOC: ER 10:10
PROVIDERS: Emergency Medicine
DX: K42.9 Umbilical hernia without obstruction or gangrene (principal); R07.89 Other chest pain; R51 Headache; I25.10 Atherosclerotic heart disease of native coronary artery without angina pectoris; Z86.73 Personal history of transient ischemic attack (TIA), and cerebral infarction without residual deficits; E78.5 Hyperlipidemia, unspecified; I48.91 Unspecified atrial fibrillation; I10 Essential (primary) hypertension; F41.9 Anxiety disorder, unspecified; F32.9 Major depressive disorder, single episode, unspecified; M17.0 Bilateral primary osteoarthritis of knee; M16.0 Bilateral primary osteoarthritis of hip; M19.072 Primary osteoarthritis, left ankle and foot; M19.071 Primary osteoarthritis, right ankle and foot; Z98.52 Vasectomy status; Z88.6 Allergy status to analgesic agent; Z88.8 Allergy status to other drugs, medicaments and biological substances; Z95.5 Presence of coronary angioplasty implant and graft

== ENCOUNTER 2019-05-25 12:06 | Emergency (ER) | payer BC ==
[~2019-05-25] VITALS: Ht 177.8 cm; Wt 155.6 kg
[2019-05-25] MEDS ORDERED: BYSTOLIC20 MG PO (12:11)
[2019-05-25 12:59] LABS: ABSOLUTE NEUTROPHILS 1.8 thou/uL (1.4-8.2); BASOPHILS 0.9 % (0.0-2.0); EOSINOPHILS 5.3 % (0.0-3.0); HEMATOCRIT 40.5 % (42.0-52.0); HEMOGLOBIN 13.3 gm/dL (14.0-18.0); LYMPHOCYTES 34.6 % (24.0-44.0); MCH 29.4 pg (26.0-34.0); MCHC 32.9 g/dL (28.0-37.0); MCV 89.2 fL (80.0-100.0); MONOCYTES 9.1 % (1.0-8.0); PLATELET COUNT 202 thou/uL (150-400); POLYS 50.1 % (36.0-66.0); RBC 4.55 mil/uL (4.50-6.00); RDW 13.3 % (10.5-14.5); WBC 3.7 thou/uL (4.0-11.0)
[2019-05-25 13:06] LABS: ANION GAP 5 mmol/L (7-16); BUN 11 mg/dL (7-18); CALCIUM 8.9 mg/dL (8.5-10.1); CHLORIDE 106 mmol/L (98-107); CO2 30 mmol/L (21-32); CREATININE 1.1 mg/dL (0.7-1.3); GLUCOSE 90 mg/dL (74-106); POTASSIUM 3.9 mmol/L (3.5-5.1); SODIUM 141 mmol/L (136-145)
[2019-05-25 13:17] LABS: ALBUMIN 3.3 g/dL (3.4-5.0); SGOT 17 U/L (15-37); SGPT 20 U/L (30-65); TOTAL BILIRUBIN 0.6 mg/dL (<0.1-1.0); TOTAL PROTEIN 7.3 g/dL (6.4-8.2); TROPONIN-I <0.06 ng/mL (<0.06)
[2019-05-25 13:41] VITALS: BP 132/67
[2019-05-25] MEDS ORDERED: OMEPRAZOLE40 MG PO (13:44)
--- NOTE | 2019-05-26 07:48 | EKG ---
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 : 1955 Requested By: Dileep Dumont Order Number: [id number] MD: Herson Warren Measurements Intervals [place] Rate: 61 P: -3 WY: 207 QRS: -14 QRSD: 93 T: 31 QT: 446 QTc: 450 Interpretive Statements Sinus rhythm Abnormal R-wave progression, early transition Inferior infarct, old Compared to ECG 10/20/2018 10:23:29 No significant changes Electronically Signed On 05-26-2019 7:48:30 CDT by Herson Warren [email or web address] ��������������������������������������������� <ELECTRONICALLY SIGNED> ���������������������������������������� By: Herson Warren MD, [facility] ��������������������������������������������� 05/26/19 0748 1205 1205 Herson Warren MD, [facility] /EPI
== END 2019-05-25 13:52 | disposition home or self-care (01) ==
LOC: ER 12:06
PROVIDERS: Emergency Medicine
DX: R07.89 Other chest pain (principal); I10 Essential (primary) hypertension; I48.91 Unspecified atrial fibrillation; I25.10 Atherosclerotic heart disease of native coronary artery without angina pectoris; E78.5 Hyperlipidemia, unspecified; F41.9 Anxiety disorder, unspecified; F32.9 Major depressive disorder, single episode, unspecified; Z86.73 Personal history of transient ischemic attack (TIA), and cerebral infarction without residual deficits; Z88.6 Allergy status to analgesic agent; Z88.8 Allergy status to other drugs, medicaments and biological substances; Z79.899 Other long term (current) drug therapy; Z95.818 Presence of other cardiac implants and grafts

== ENCOUNTER → 2019-11-19 | Outpatient (CLI) | payer OTHER ==
[~2019-11-19] MED LIST changes: +BYSTOLIC20 MG PO; +OMEPRAZOLE40 MG PO
== END ==
LOC: RAD 11:26
DX: M19.011 Primary osteoarthritis, right shoulder (principal); M47.812 Spondylosis without myelopathy or radiculopathy, cervical region; R07.81 Pleurodynia; R73.9 Hyperglycemia, unspecified; E83.42 Hypomagnesemia; I10 Essential (primary) hypertension

== ENCOUNTER 2019-11-29 03:18 | Inpatient (IN) | payer OTHER ==
[~2019-11-29] VITALS: Ht 182.9 cm; Wt 156.5 kg
[2019-11-29 03:23] VITALS: BP 166/98
[2019-11-29 04:12] LABS: HEMATOCRIT 44.1 % (42.0-52.0); HEMOGLOBIN 14.5 gm/dL (14.0-18.0); MCH 29.6 pg (26.0-34.0); MCV 89.7 fL (80.0-100.0); RBC 4.92 mil/uL (4.50-6.00); RDW 13.6 % (10.5-14.5); WBC 7.3 thou/uL (4.0-11.0)
[2019-11-29 04:21] LABS: CALCIUM 9.2 mg/dL (8.5-10.1); CREATININE 1.1 mg/dL (0.7-1.3); POTASSIUM 4.2 mmol/L (3.5-5.1)
--- NOTE | 2019-11-29 04:45 | NUR ---
CHARTED PAIN RELIEF BACKWARDS, PT RECEIVED NO PAIN RELIEF FROM FIRST 1MG SHOT OF DILAUDID, BUT WAS SLEEPING AFTER SECOND 1MG SHOT OF DILAUDID
[2019-11-29 08:54] VITALS: BP 155/85
[2019-11-29 10:29] VITALS: BP 144/97
[2019-11-29 11:59] VITALS: BP 174/88
--- NOTE | 2019-11-29 12:01 | NUR ---
ASSUMED CARE OF THE PT AT 1100. PT IS UNSTEADY AND REQUIRES ASSISTANCE WHEN GETTING UP. LUNGS ARE CLEAR. HEART RATE IS ELEVATED. ORDERED PAIN MEDICATION FROM DOCTOR, SEE EMAR. FALL PRECAUTIONS ARE IN PLACE. BED IN LOWEST POSITION AND CALL LIGHT IS WITHIN REACH. WILL CONTINUE TO MONITOR THE PT.
[2019-11-29 15:34] VITALS: BP 182/94
[2019-11-29 20:28] VITALS: BP 154/80
[2019-11-30 04:35] VITALS: BP 156/77
--- NOTE | 2019-11-30 04:47 | NUR ---
ASSUMED CARE OF PATIENT AT SHIFT CHANGE. ASSESSMENT CHARTED. MEDICATIONS GIVEN PER JAN. PATIENT IS A&OX4, VSS; BP WAS ELEVATED BUT BROUGHT BACK DOWN WITH HYDRALAZXINE SHOT GIVEN BY DAY RN. PATIENT VOICES PAIN AT A 8/10 AND WAS GIVEN PRN PO MED FOR PAIN. PATIENT HAS ALSO BEEN GETTING HYDROMORPHONE AND STATES HIS PAIN IS CONSTANTLY AT A 8-10. PATIENT USES A URINAL; AMBULATION IS TOO PAINFUL FOR HIM. MOVEMENT OF ANY KIND EXACERBATES HIS PAIN. PATIENT IS BEING MONITORED FREQUENTLY. HE VOICES NO OTHER CONCERNS EXCEPT PAIN. FALL PRECAUTIONS IN PLACE, CALL LIGHT AND BELONGINGS WITHIN REACH. WILL CONTINUE TO MONITOR AND FOLLOW POC
[2019-11-30 08:17] VITALS: BP 159/80
[2019-11-30 17:07] VITALS: BP 159/84
--- NOTE | 2019-11-30 19:52 | NUR ---
Assumed care of pt at 0700. Pt c/o right hip pain. Prn pain meds administered. Pt went downstairs for MRI. Flu vaccine administered. Pt able to ambulate with a walker to the toilet. Fall precautions in place. Report given to morgan WILCOX.
[2019-11-30 20:10] VITALS: BP 168/96
[2019-12-01 05:00] VITALS: BP 134/92
--- NOTE | 2019-12-01 05:17 | NUR ---
ASSUMED CARE OF PATIENT AT SHIFT CHANGE. ASSESSMENT CHARTED. MEDICATIONS GIVEN PER JAN. PATIENT CONTINUES TO C/O EXCRUTIATING PAIN THIS SHIFT. PRN PAIN MEDS GIVEN NEEDED. PATIENT C/O PAIN AT 10/10 AND STATES IT DOES NOT COME DOWN MORE THAN A 9/10. PATIENT AMBULATED AT THE START OF THIS SHIFT. PATIENT DID WELL WALKING SLOWLY BUT C/O PAIN THE ENTIRE TIME HE AMBULATED. FOR THE REST OF THE NIGHT, THE PATIENT C/O PAIN. PRN PAIN MEDS WERE GIVEN SOON THEY COULD. MRI RESULTS SHOWED DJD AND OSTEOARTHRITIS BUT NO FRACTURE. PATIENT WAS ALSO RUNNING A FEVER AND WAS CONTROLLED BY TYLENOL. PATIENT CALLS OUT APPROPRIATELY. WILL CONTINUE TO MONITOR AND FOLLOW POC
[2019-12-01 07:25] VITALS: BP 147/85
--- NOTE | 2019-12-01 07:30 | NUR ---
I AGREE WITH THIS PATIENT'S ASSESSMENT CHARTING.
--- NOTE | 2019-12-01 10:33 | NUR ---
INITIAL ASSESSMENT: Pt evaluated for d/c planning needs. Reviewed chart and spoke with nurse and pt. Pt is alert and oriented. Pt lives alone in house and was independent with ADL's prior to admission to the hospital. Pt said he plans to move to an apartment soon. Pt has cane and CPAP at home. Pt has son and daughter in area. Pt has not had home health in the past. Pt plans on returning home on d/c from hospital. Referral made to [facility]. Will remain available to assist as needed.
[2019-12-01] MEDS ORDERED: ROBAXIN 750 MG750 MG PO (12:24)
[2019-12-01] MEDS ORDERED: PERCOCET 7.5-31 EAC1 PO (12:40)
[2019-12-01] MEDS ORDERED: LIDOPATCH1 EACH TRANSDERM (12:40)
[2019-12-01 16:00] VITALS: BP 164/107
[2019-12-01 16:03] VITALS: BP 170/102
[2019-12-01 16:19] VITALS: BP 170/102
--- NOTE | 2019-12-01 18:00 | NUR ---
PT ASSESSED AT START OF SHIFT. STILL HAVING PAIN BUT ABLE TO MOVE BETTER WALKING W/ WALKER DOWN THE HALLS. PT STATES GOAL IS TO LOSE THE WEIGHT HE GAINED BACK SO HE CAN HAVE HIP REPLACEMENT TO HELP PAIN. DISCHARGED AT THIS TIME TO HOME W/ SELF CARE.
== END 2019-12-01 18:20 | disposition home or self-care (01) | DRG 554 ==
LOC: ER 03:18 → EROBS 05:20 → 4S 05:20 → ENTRNSPT 12-01 17:36 → 4S 12-01 18:20
PROVIDERS: Emergency Medicine; ADMIT Hospitalist
PROC: 5A09357 Assistance with Respiratory Ventilation, Less than 24 Consecutive Hours, Continuous Positive Airway Pressure (ICD-10-PCS; principal; 2019-11-29)
DX: M16.11 Unilateral primary osteoarthritis, right hip (principal); Z95.5 Presence of coronary angioplasty implant and graft; I10 Essential (primary) hypertension; F32.9 Major depressive disorder, single episode, unspecified; F41.9 Anxiety disorder, unspecified; I25.10 Atherosclerotic heart disease of native coronary artery without angina pectoris; E78.5 Hyperlipidemia, unspecified; I48.0 Paroxysmal atrial fibrillation; G89.29 Other chronic pain; N23 Unspecified renal colic; M25.551 Pain in right hip; Z23 Encounter for immunization; Z86.73 Personal history of transient ischemic attack (TIA), and cerebral infarction without residual deficits; Z98.52 Vasectomy status; Z88.6 Allergy status to analgesic agent; Z88.8 Allergy status to other drugs, medicaments and biological substances; Z79.899 Other long term (current) drug therapy; Z60.2 Problems related to living alone
CPT/HCPCS: 10195

== ENCOUNTER 2020-11-15 17:00 | Emergency (ER) | payer OTHER, MEDICAID ==
[~2020-11-15] VITALS: Ht 182.9 cm; Wt 161.0 kg
[~2020-11-15 17:00] MED LIST changes: +LIDOPATCH1 EACH TRANSDERM; +PERCOCET 7.5-31 EAC1 PO; +ROBAXIN 750 MG750 MG PO
[2020-11-15] MEDS ORDERED: NORVASC5 MG PO (18:30)
[2020-11-15] MEDS ORDERED: DULOXETINE HCL30 MG PO (18:30)
[2020-11-15] MEDS ORDERED: CELECOXIB100 MG PO (18:30)
[2020-11-15] MEDS ORDERED: NEURONTIN 300M300 M2 PO (18:30)
[2020-11-15] MEDS ORDERED: CYCLOBENZAPRINE5 MG PO (18:31)
[2020-11-15 18:33] LABS: ABSOLUTE NEUTROPHILS 2.5 thou/uL (1.4-8.2); BASOPHILS 0.9 % (0.0-2.0); EOSINOPHILS 4.2 % (0.0-3.0); HEMATOCRIT 39.6 % (42.0-52.0); HEMOGLOBIN 13.5 gm/dL (14.0-18.0); LYMPHOCYTES 28.4 % (24.0-44.0); MCH 30.7 pg (26.0-34.0); MCHC 34.1 g/dL (28.0-37.0); MCV 89.9 fL (80.0-100.0); MONOCYTES 7.3 % (1.0-8.0); PLATELET COUNT 189 thou/uL (150-400); POLYS 59.2 % (36.0-66.0); RBC 4.41 mil/uL (4.50-6.00); RDW 13.1 % (10.5-14.5); WBC 4.3 thou/uL (4.0-11.0)
[2020-11-15 18:44] LABS: ANION GAP 11 mmol/L (7-16); BUN 10 mg/dL (7-18); CHLORIDE 105 mmol/L (98-107); CO2 26 mmol/L (21-32); CREATININE 1.1 mg/dL (0.7-1.3); GLUCOSE 157 mg/dL (74-106); POTASSIUM 3.3 mmol/L (3.5-5.1); SODIUM 142 mmol/L (136-145)
[2020-11-15 18:48] LABS: APTT 28.6 Seconds (24.5-32.8); INR 1.1; PROTIME 10.9 Seconds (9.3-11.4)
[2020-11-15 19:01] LABS: ALBUMIN 3.4 g/dL (3.4-5.0); MAGNESIUM 2.2 mg/dL (1.8-2.4); SGOT 25 U/L (15-37); SGPT 38 U/L (30-65); TOTAL BILIRUBIN 0.5 mg/dL (0.2-1.0); TROPONIN-I <0.06 ng/mL (<0.06)
[2020-11-15] MEDS ORDERED: TRAMADOL 50 MG50 MG PO (19:22)
[2020-11-15] MEDS ORDERED: PREDNISONE 20 M20 MG PO (19:22)
[2020-11-15 19:43] VITALS: BP 136/66
--- NOTE | 2020-11-16 07:20 | EKG ---
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
== END 2020-11-15 19:49 | disposition home or self-care (01) ==
LOC: ER 17:00
PROVIDERS: Emergency Medicine
DX: G56.01 Carpal tunnel syndrome, right upper limb (principal); M16.11 Unilateral primary osteoarthritis, right hip; M17.11 Unilateral primary osteoarthritis, right knee; R20.2 Paresthesia of skin; I25.10 Atherosclerotic heart disease of native coronary artery without angina pectoris; I48.91 Unspecified atrial fibrillation; I10 Essential (primary) hypertension; Z88.6 Allergy status to analgesic agent; Z79.899 Other long term (current) drug therapy; Z86.73 Personal history of transient ischemic attack (TIA), and cerebral infarction without residual deficits; Z90.89 Acquired absence of other organs